=== PATIENT | male | born 1955 | race Caucasian/White ===

== ENCOUNTER 2025-01-30 06:30 | Day surgery (SDC) | payer OTHER, SELFPAY | END 2025-01-30 15:08 | disposition home or self-care (01) | LOC: GI 06:30 | PROVIDERS: ATTENDING PHYSICIAN Student in an Organized Health Care Education/Training Program | DX: Z12.11 Encounter for screening for malignant neoplasm of colon (principal); K64.0 First degree hemorrhoids; K62.89 Other specified diseases of anus and rectum; K44.9 Diaphragmatic hernia without obstruction or gangrene; K25.9 Gastric ulcer, unspecified as acute or chronic, without hemorrhage or perforation; K31.89 Other diseases of stomach and duodenum; K22.89 Other specified disease of esophagus; D12.2 Benign neoplasm of ascending colon; D12.1 Benign neoplasm of appendix; K62.1 Rectal polyp; K22.70 Barrett's esophagus without dysplasia; Z13.810 Encounter for screening for upper gastrointestinal disorder | CPT/HCPCS: 45385; 45380; 43239; 88305; 88342 ==